=== PATIENT | female | born 1945 | race Caucasian/White ===

== ENCOUNTER → 2024-01-06 08:04 | Outpatient (REF) | payer MEDICARE, SELFPAY | LOC: HWRAD 08:04 | PROVIDERS: ATTENDING PHYSICIAN Physician Assistant Medical | DX: Z12.31 Encounter for screening mammogram for malignant neoplasm of breast (principal); M85.89 Other specified disorders of bone density and structure, multiple sites | CPT/HCPCS: 77063; 77067; 77080 ==

== ENCOUNTER → 2025-02-16 09:19 | Outpatient (REF) | payer MEDICARE, SELFPAY | LOC: HWWDC 09:19 | PROVIDERS: ATTENDING PHYSICIAN Physician Assistant Medical | DX: Z12.31 Encounter for screening mammogram for malignant neoplasm of breast (principal) | CPT/HCPCS: 77063; 77067 ==

== ENCOUNTER → 2025-04-13 09:47 | Outpatient (REF) | payer MEDICARE, SELFPAY | LOC: HWRAD 09:47 | PROVIDERS: ATTENDING PHYSICIAN Physician Assistant Medical | DX: M25.562 Pain in left knee (principal) | CPT/HCPCS: 73564 ==